=== PATIENT | female | born 1995 | race African-American/Black ===

== ENCOUNTER 2020-01-17 00:03 | Observation (INO) | payer MEDICAID ==
[2020-01-17] MEDS ORDERED: Ondansetron PF 4 MG/2 ML Vial ONE ×2 (00:24→02:02)
[2020-01-17 01:07] LABS: #Basophils 0.1 thou/uL (0.0-0.2); #Lymphocytes 1.6 thou/uL (1.20-3.40); #Monocytes 0.5 thou/uL (0.11-0.59); #Neutrophils 6.7 thou/uL (1.40-6.50); %Basophils 0.9 % (0.0-1.0); %Eosinophils 0.4 % (0.0-10.0); %Lymphocytes 18.3 % (21.0-51.0); %Monocytes 5.6 % (0.0-10.0); %Neutrophils 74.9 % (42.0-75.0); Mean Corpuscular HGB CONC 33.3 g/dL (32.0-36.0); Mean Corpuscular Hemoglobin 28.4 pg (27.0-31.0); Mean Corpuscular Volume 85.2 fL (78.0-98.0); Mean Platelet Volume 8.3 fL (7.4-10.4); Platelet Count 368 thou/uL (130-400); RBC Distribution Width 11.8 % (11.5-14.5); Red Blood Cell (RBC) Count 4.94 mill/uL (4.20-5.40)
[2020-01-17 01:07] LABS: Bacteria/HPF None Seen HPF (None Seen); Bilirubin 1+ (Negative); Blood, Urine Negative (Negative); Clarity Turbid (Clear); Glucose, Urine (Dipstick) Normal (Negative); Leukocyte 25 Leu/uL (Negative); Mucous/LPF 4+ LPF (<2+); Nitrite Negative (Negative); Protein, Urine (Dipstick) 600 mg/dL (Neg-Trace); Urobilinogen Greater than 12 mg/dL (Less than 2)
[2020-01-17 01:18] LABS: ALT (SGPT) 80 U/L (8-55); AST (SGOT) 55 U/L (5-34); Albumin 4.2 g/dL (3.5-5.0); Alkaline Phosphatase 87 U/L (40-110); Anion Gap 19 mmol/L (10-20); BUN (Urea Nitrogen) 12 mg/dL (7.0-18.7); Bilirubin, Total 0.9 mg/dL (0.2-1.2); Calc. Creatinine Clearance 0 mL/min (70-130); Calcium 9.9 mg/dL (7.8-10.44); Carbon Dioxide 20 mmol/L (22-29); Chloride 102 mmol/L (98-107); Estimated GFR-MDRD Greater than 90; Globulin 4.3 g/dL (2.4-3.5); Glucose 103 mg/dL (70-105); Potassium 3.3 mmol/L (3.5-5.1); Protein, Total 8.5 g/dL (6.0-8.3); Sodium 138 mmol/L (136-145)
[2020-01-17] MEDS ORDERED: Metoclopramide HCl 10 MG/2 ML VIAL ONE (03:05)
[2020-01-17] MEDS ORDERED: Acetaminophen 500 MG TAB ONE (03:05)
[2020-01-17 05:59] VITALS: BMI 26.3
[2020-01-17] MEDS ORDERED: Lactated Ringer's 1,000 ML IV SCH (07:45)
[2020-01-17] MEDS ORDERED: Ondansetron ODT 4 MG TAB PO PRN (07:47)
--- NOTE | 2020-01-17 08:31 | HP ---
PRIMARY OB: Out of town in [place], [place]. CHIEF COMPLAINT: Persistent nausea and vomiting. HISTORY OF PRESENT ILLNESS: The patient is a 24-year-old female with an intrauterine of approximately 8 weeks gestation, who reports 2-day history of persistent nausea and vomiting and has not been able to keep down fluids or solids. She reports some dysuria with her urine, but reports her urine is very, very dark and reports some back pain. She denies fever. She denies headache. She denies chest pain or shortness of breath, though she does say she experience some of that when she first arrived to the ER, which has spontaneously resolved. She denies persistent nausea and vomiting here in the hospital since being given Zofran. In fact, she has reports an appetite again. She denies any new rashes, diarrhea, constipation, hip problems, knee problems, or muscle weakness. She denies vaginal bleeding or leakage of fluid. PAST MEDICAL HISTORY: The patient reports a history of thyroid dysfunction, off medication. PAST SURGICAL HISTORY: She denies any surgeries in the past. SOCIAL HISTORY: She denies drug, alcohol, or tobacco use. Again, she reports she is actively getting OB care at a facility in [place], [place]. ALLERGIES: NO KNOWN DRUG ALLERGIES. MEDICATIONS: No medications outpatient. She has been placed on Zofran here in the hospital and IV fluids. PHYSICAL EXAMINATION: VITAL SIGNS: Blood pressure 123/63, respiratory rate 18, saturating 99% on room air, and temperature 98.1. GENERAL: She appears to be in no acute distress. She is alert, oriented, cooperative, and pleasant to interact with and in fact at the time of evaluation, the patient was eating breakfast. HEART: She has regular rate and rhythm. LUNGS: Clear to auscultation bilaterally. ABDOMEN: Soft. She does have some tenderness in the suprapubic region. She has some CVA tenderness, right greater than left. EXTREMITIES: Nontender and nonedematous. LABORATORY STUDIES: White count 9.0, hemoglobin 14, hematocrit 42.1, and neutrophils 74%. Sodium 138, potassium 3.3, creatinine 0.58, AST of 55, ALT of 80. Urine is turbid with a pH of 6.5, specific gravity 1.037, 600 of protein, 40 of ketones, negative nitrites, 1+ bilirubin, 25 leukocyte esterase, 4 to 6 red blood cells, 7 to 10 white blood cells, 4 to 6 squamous cells, and no bacteria. ASSESSMENT AND PLAN: The patient is a 24-year-old female with a very early intrauterine at approximately 8 weeks by report with persistent nausea and vomiting that has improved with IV Zofran. The patient is receiving hydration this morning, is tolerating a diet. Her urine specimen is unable to be interpreted well due to contamination. I will be repeating that this morning to look for signs of urinary tract infection. Her CVA tenderness may be due to the extreme dehydration, but also may be a sign of a developing a kidney infection, though her white count at this time is normal and the patient is afebrile. Should she have no signs of infection this morning, the patient will be discharged home on Zofran and instructions to take vitamin B6 and Unisom scheduled. The patient has also been counseled to follow up with her primary OB in the next couple of days. Should the patient have signs of urinary tract infection versus early kidney infection, the oncoming physician Dr. Delong, will make management decisions at that time. Job ID: [id number]
[2020-01-17] MEDS ORDERED: Doxylamine 25 MG TAB PO SCH (09:00)
[2020-01-17] MEDS ORDERED: pyridOXINE 50 MG (B6) TAB PO SCH (09:00)
[2020-01-17 09:08] LABS: Bilirubin 1+ (Negative); Blood, Urine Negative (Negative); Clarity Turbid (Clear); Glucose, Urine (Dipstick) Normal (Negative); Leukocyte 250 Leu/uL (Negative); Nitrite Negative (Negative); Protein, Urine (Dipstick) 70 mg/dL (Neg-Trace); Squamous Epithelial 0-3 HPF (0-3); Urobilinogen Greater than 12 mg/dL (Less than 2)
[2020-01-17 09:16] LABS: Bacteria/HPF Rare-Few HPF (None Seen); Mucous/LPF 2+ LPF (<2+)
[2020-01-17 11:50] VITALS: BP 125/61; TEMP 98.1
--- NOTE | 2020-01-17 12:21 | PDOC.EVN ---
Event Note - Event Note Event Note: OBGYN Project Specialist Patient cleraed for discharge by Dr Dumont earlier this AM. I was tasked with following up the UA from this AM. Possible UTI so I will write a RX for macrobid x 7 days. Follow up with her provider in 1 week
--- NOTE | 2020-01-17 12:28 | PDOC.EVN ---
Event Note - Event Note Event Note: Pt seen at bedside. I will order 2grams [place] prior to DC home to vover UTO pathogens prior to her filling her macrobid. I am doing this to prevent delay in treatment of UTI. Home with antinausea meds
[2020-01-17] MEDS ORDERED: cefTRIAXone\\ROCEPHIN 2 GM in Sodium Chloride 0.9% 100 ML IVPB SCH (12:30)
[2020-01-17] MEDS ORDERED: Sodium Chloride 0.9% 500 ML IV SCH (12:30)
--- NOTE | 2020-01-18 15:33 | EKG ---
Test Reason : Blood Pressure : / mmHG Vent. Rate : 112 BPM Atrial Rate : 112 BPM P-R Int : 114 ms QRS Dur : 076 ms QT Int : 324 ms P-R-T Axes : 049 025 046 degrees QTc Int : 442 ms Sinus tachycardia No STEMI Otherwise normal ECG Confirmed by PASCALE GRANT M.D. ([id number]), loan expeditor ZAHIRA RAMIREZ ([id number] on 01/18/2020 3:33:09 PM Referred By: Confirmed By:PASCALE GRANT M.D.
== END 2020-01-17 15:30 | disposition home or self-care (01) ==
LOC: ERS 00:03 → 3SE 05:40
PROVIDERS: ADMIT Obstetrics & Gynecology; ATTEND Obstetrics & Gynecology
DX: O99.89 Other specified diseases and conditions complicating pregnancy, childbirth and the puerperium (principal); R11.2 Nausea with vomiting, unspecified; O99.281 Endocrine, nutritional and metabolic diseases complicating pregnancy, first trimester; E03.9 Hypothyroidism, unspecified; Z3A.08 8 weeks gestation of pregnancy
CPT/HCPCS: 80053; 81003; 81015; 85025; 93005; 96361; 96365; 96367; 96375; 96376; A4353; G0378; J0696; J2405; J2765; J3490; Q0162

== ENCOUNTER 2020-10-30 20:08 | Emergency (ER) | payer MEDICAID ==
[2020-10-30 20:44] LABS: Bilirubin Negative (Negative); Blood, Urine 2+ (Negative); Clarity Turbid (Clear); Glucose, Urine (Dipstick) Normal (Negative); Ketone, Urine Negative (Negative); Leukocyte Negative Leu/uL (Negative); Nitrite Negative (Negative); Protein, Urine (Dipstick) 10 mg/dL (Neg-Trace); RBC/HPF 21-50 HPF (0-3); Specific Gravity, Urine 1.024 (1.002-1.036); Urobilinogen Normal mg/dL (Less than 2); pH, Urine 7.5 (5.0-9.0)
[2020-10-30 20:48] LABS: #Basophils 0.1 thou/uL (0.0-0.2); #Eosinphils 0.2 thou/uL (0.0-0.7); #Monocytes 0.6 thou/uL (0.11-0.59); #Neutrophils 3.8 thou/uL (1.40-6.50); %Basophils 1.2 % (0.0-1.0); %Monocytes 7.8 % (0.0-10.0); Hemoglobin 12.1 g/dL (12.0-16.0); Mean Corpuscular HGB CONC 32.4 g/dL (32.0-36.0); Mean Corpuscular Hemoglobin 27.5 pg (27.0-31.0); Mean Corpuscular Volume 84.9 fL (78.0-98.0); Mean Platelet Volume 7.7 fL (7.4-10.4); Platelet Count 376 thou/uL (130-400); RBC Distribution Width 15.8 % (11.5-14.5); White Blood Cell (WBC) Count 7.6 thou/uL (4.8-10.8)
[2020-10-30 20:52] LABS: Bacteria/HPF 2+ HPF (None Seen)
[2020-10-30 20:53] LABS: BHCG - Serum Negative (NEGATIVE); Pregs Control Background? CLEAR/WHITE (CLR/WHITE); Pregs Control Bar Appear? YES (CONTROL BAR)
[2020-10-30] MEDS ORDERED: Acetaminophen 500 MG TAB ONE (20:54)
[2020-10-30 21:10] LABS: ALT (SGPT) 25 U/L (8-55); AST (SGOT) 19 U/L (5-34); Albumin 4.4 g/dL (3.5-5.0); Alkaline Phosphatase 70 U/L (40-110); Anion Gap 16 mmol/L (10-20); BUN (Urea Nitrogen) 11 mg/dL (7.0-18.7); Bilirubin, Total 0.2 mg/dL (0.2-1.2); Calc. Creatinine Clearance 0 mL/min (70-130); Calcium 9.1 mg/dL (7.8-10.44); Carbon Dioxide 22 mmol/L (22-29); Chloride 103 mmol/L (98-107); Glucose 94 mg/dL (70-105); Potassium 3.5 mmol/L (3.5-5.1); Protein, Total 8.4 g/dL (6.0-8.3); Sodium 137 mmol/L (136-145)
--- NOTE | 2020-10-30 21:30 | CT ---
CT ABDOMEN AND PELVIS WITHOUT CONTRAST: 10/30/20 HISTORY: Dysuria, Lower abdominal pain, flank pain. COMPARISON: None. DISCLAIMER: Absence of oral and IV contrast reduces the sensitivity of the exam particularly for the evaluation o f solid organs and bowel. FINDINGS: There is a calcified granuloma in the right lower lobe. No free air, free fluid is seen in the abdome n or pelvis. No calcified gallstones are noted. No calculi is seen in the right kidney, either ureter or the urinary bladder. No hydroureteronephrosi s is seen on either side. There is a punctate calculus in the left kidney. The small bowel loops are not abnormally dilated. A normal appearing appendix is present. Aorta is of normal caliber. Uterus and ovaries are present. There is a small fat containing umbilical hernia. No acute osseous abnormalities are seen. IMPRESSION: 1. Nonobstructing punctate left renal calculus. 2. No evidence of appendicitis. 3. Small fat containing umbilical hernia. POS: [facility]
== END 2020-10-30 21:25 | disposition home or self-care (01) ==
LOC: ERS 20:08
DX: R30.0 Dysuria (principal); N89.8 Other specified noninflammatory disorders of vagina; E03.9 Hypothyroidism, unspecified; F17.210 Nicotine dependence, cigarettes, uncomplicated; Z79.899 Other long term (current) drug therapy
CPT/HCPCS: 74176; 80053; 81003; 81015; 84703; 85025; 87086